=== PATIENT | male | born 1960 | race Caucasian/White ===

== ENCOUNTER → 2017-06-11 | Day surgery (SDC) | payer BC ==
[~2017-06-11] MED LIST: ACETAMINOPHEN 1000 MG/100 ML 100 ML IV ONE; ACETAMINOPHEN/HYDROcodone 325 MG/5 MG TAB ONE; BUPIVACAINE/EPINEPHRINE 0.25% PF 30 ML VIAL INFIL ONE; KETOROLAC TROMETHAMINE 30 MG/ML (IVP) VIAL IV PUSH ONE; LACTATED RINGER'S 1000 ML INJ 1,000 ML ONE; LISI-357 PO; MIDAZOLAM HCL 2 MG/2 ML VIAL ONE; ONDANSETRON HCL 4 MG/2 ML VIAL IV PUSH ONE; PROPOFOL 100 MG/10 ML INJ IV ONE; VITA500C PO; ceFAZolin 2 GM PREMIX 50 ML ONE
--- NOTE | 2017-06-11 14:40 | TN ---
cc: ALICIA SARAH M.D. DATE OF SURGERY: 06/11/2017 PREOPERATIVE DIAGNOSIS Incarcerated umbilical hernia. POSTOPERATIVE DIAGNOSIS Incarcerated umbilical hernia. PROCEDURE Open repair incarcerated umbilical hernia with mesh. SURGEON Dr. Alicia Sarah. ATHLETIC FIELD CUSTODIAN Bette Dennis, MS III. ANESTHESIA General. INDICATION This is a pleasant 57-year-old gentleman who was sent to me in consultation by his primary care physician for evaluation of umbilical hernia that had been present for greater than eight months. It has increased in size, has become more painful with lifting and direct pressure. He wishes to have it fixed. INTRAOPERATIVE FINDINGS About a 2 cm umbilical hernia defect with incarcerated preperitoneal fat. Primary repair with onlay mesh. ESTIMATED BLOOD LOSS Minimal. DESCRIPTION OF PROCEDURE IN DETAIL The patient was identified as Frantz Kurtz, taken to the operating room and placed in supine position. Sequential compression devices were placed on bilateral lower extremities. Following induction of adequate general anesthesia the patient's abdomen was prepped and draped in the usual sterile fashion with Betadine. A timeout procedure was performed. Following completion of the timeout procedure to everyone's satisfaction within the room, the proposed infraumbilical transverse incision was made with a marking pen and infiltrated with local anesthetic. The incision was carried out with a scalpel and hemostasis was controlled with electrocautery. Dissection came posteriorly lifting the umbilical skin off the herniated preperitoneal fatty tissue. The preperitoneal fatty tissue which was herniated through was from surrounding tissues to the level of the fascial defect and was scored along the fascial defect and the umbilical hernia sac was excised. Small bleeding points were controlled with electrocautery and the preperitoneal fat was reduced into the preperitoneal space. The anterior fascia was circumferentially cleared with electrocautery. The fascial defect was approximated with interrupted inverted 0 Prolene sutures. A small piece of mesh to cover the primary closure with a 2-3 cm margin was then cut from a 3 x 6 inch piece, placed in the onlay position, held in place with 6-0 Ethibond sutures. The wound was irrigated with saline. There was no evidence of bleeding. Local anesthetic was placed within the wound. The umbilicus was reformed with interrupted 2-0 Vicryl sutures. The skin incision was approximated with 4-0 Monocryl subcuticular sutures. Dressings were applied with Mastisol, half-inch brown Steri-Strips, gauze and Tegaderm. The patient tolerated the procedure without apparent complication. Sponge, needle and instrument counts were correct at the end of the case. MD MANUEL Licea/DARVIN /2:14 PM /2:32 PM
--- NOTE | 2017-06-26 11:07 | HHI.HP ---
cc: Brian Slater MD [facility] Service General Surgery Primary Care Physician Unknown Admission Diagnosis Patient seen in office for umbilical hernia; arrange for outpatient umbilical hernia repair. Chief Complaint: Umbilical hernia History of Present Illness This is a patient who is seen in the office by Dr. Slater for outpatient elective repair of an umbilical hernia. The patient reports bulging at times and tenderness in the umbilical region. He is referred by his primary care physician for umbilical hernia repair. Review of Systems Constitutional: DENIES: Fever, Weight gain Endocrine: DENIES: Polydipsia, Polyuria, Polyphagia Eyes: DENIES: Diplopia, Eye inflammation Ears, nose, mouth, throat: DENIES: Hearing loss, Vertigo Respiratory: DENIES: Cough Cardiovascular: DENIES: Chest pain Gastrointestinal: DENIES: Abdominal pain Genitourinary: DENIES: Urinary frequency Musculoskeletal: DENIES: Muscle aches Integumentary: DENIES: Abnormal pigmentation Hematologic/lymphatic: DENIES: Bruising Immunologic/allergic: DENIES: Eczema Neurologic: DENIES: Headache, Localized weakness Psychiatric: DENIES: Mood changes, Depression Other Patient reports bulging at times; tenderness in umbilical region Past Family Social History Past Medical History Hypertension Rheumatoid arthritis Past Surgical History RIGHT jaw tumor removed 6 years ago Reported Medications Folic acid Humira Hydrocodone Lisinopril methotrexate Omeprazole Prednisone Xeljanz Allergies: Coded Allergies: codeine (Unverified Allergy, Severe, itching, 05/09/17) Family History Noncontributory Social History Denies tobacco use Social EtOH use Denies illicit drug use Physical Exam Physical Exam GENERAL: Alert and awake SKIN: Warm and dry. HEAD: Atraumatic. Normocephalic. EYES: Pupils equal and round. No scleral icterus. No injection or drainage. ENT: No nasal bleeding or discharge. Mucous membranes pink and moist. NECK: Trachea midline. CARDIOVASCULAR: Regular rate and rhythm. RESPIRATORY: No accessory muscle use. Clear to auscultation. Breath sounds equal bilaterally. GASTROINTESTINAL: Abdomen soft, non-tender, nondistended. Palpable umbilical hernia. MUSCULOSKELETAL: Extremities without clubbing, cyanosis, or edema. No obvious deformities. NEUROLOGICAL: Awake and alert. No obvious cranial nerve deficits. Motor grossly within normal limits. Five out of 5 muscle strength in the arms and legs. Normal speech. PSYCHIATRIC: Appropriate mood and affect; insight and judgment normal. Caprini VTE Risk Assessment Caprini VTE Risk Assessment: No/Low Risk (score <= 1) Caprini Risk Assessment Model Point Value = 1 Point Value = 2 Point Value = 3 Point Value = 5 Age 41-60 Minor surgery BMI > 25 kg/m2 Swollen legs Varicose veins or History of unexplained or recurrent spontaneous Oral contraceptives or hormone replacement Sepsis (< 1 month) Serious lung disease, including pneumonia (< 1 month) Abnormal pulmonary function Acute myocardial infarction Congestive heart failure (< 1 month) History of inflammatory bowel disease Medical patient at bed rest Age 61-74 Arthroscopic surgery Major open surgery (> 45 min) Laparoscopic surgery (> 45 min) Malignancy Confined to bed (> 72 hours) Immobilizing plaster cast Central venous access Age >= 75 History of VTE Family history of VTE Factor V Leiden Prothrombin [id number] Lupus anticoagulant Anticardiolipin antibodies Elevated serum homocysteine Heparin-induced thrombocytopenia Other congenital or acquired thrombophilia Stroke (< 1 month) Elective arthroplasty Hip, pelvis, or leg fracture Acute spinal cord injury (< 1 month) Prophylaxis Regimen Total Risk Factor Score Risk Level Prophylaxis Regimen 0-1 Low Early ambulation 2 Moderate Order ONE of the following: *Sequential Compression Device (SCD) *Heparin 5000 units SQ BID 3-4 Higher Order ONE of the following medications: *Heparin 5000 units SQ TID *Enoxaparin/Lovenox 40 mg SQ daily (WT < 150 kg, CrCl > 30 mL/min) *Enoxaparin/Lovenox 30 mg SQ daily (WT < 150 kg, CrCl > 10-29 mL/min) *Enoxaparin/Lovenox 30 mg SQ BID (WT < 150 kg, CrCl > 30 mL/min) AND/OR *Sequential Compression Device (SCD) 5 or more Highest Order ONE of the following medications: *Heparin 5000 units SQ TID (Preferred with Epidurals) *Enoxaparin/Lovenox 40 mg SQ daily (WT < 150 kg, CrCl > 30 mL/min) *Enoxaparin/Lovenox 30 mg SQ daily (WT < 150 kg, CrCl > 10-29 mL/min) *Enoxaparin/Lovenox 30 mg SQ BID (WT < 150 kg, CrCl > 30 mL/min) AND *Sequential Compression Device (SCD) Assessment and Plan Assessment and Plan 57 year old male scheduled for outpatient elective umbilical hernia repair at the [facility] -Arrangements made for outpatient elective repair of umbilical hernia -NPO night prior to surgery -Obtain consents -Procedure was explained in detail and patient given Hernia Education booklet. I have personally evaluated this patient and agree he has a symptomatic UH that would benefit from repair. The exam, history, and the medical decision-making described in the above note were completed with the assistance of the mid-level provider. I reviewed and agree with the findings presented. I attest that I had a [id number] encounter with the patient on the same day, and personally performed and documented my assessment and findings in the medical record. Discussed Condition With Kristel Ramirez Jun 26, 2017 11:07 Brian Slater MD Jun 28, 2017 11:46
== END | disposition home or self-care (01) ==
LOC: ESDC 10:42
PROVIDERS: ATTEND Surgery Trauma Surgery
DX: K42.0 Umbilical hernia with obstruction, without gangrene (principal)
CPT/HCPCS: 00750; 49587; C1781; J0131; J0690; J1885; J2250; J2405; J3010; J7120